=== PATIENT | female | born 2005 | race Caucasian/White ===

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

== ENCOUNTER 2025-01-07 13:54 | Outpatient (AMB) | payer OTHER, SELFPAY ==
--- NOTE | 2025-01-07 13:58 | A.OFFVIS_ITS ---
Vital Signs 3 01/07/25 14:05 Height 5 ft 3 in Weight 308 lb BMI 54.6 BP 144/81 H Blood Pressure Location Lt brachial Position Sitting Pulse 89 Intake Visit Reasons: cyst on scalp Intake Note: Patient is seen in office for evaluation of a cyst on the scalp. 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 This has been present for several years and have gradually increased in size. She denies any pain, redness or discharge. She denies a previous history of other lesions in the scalp. Her family history is negative for Pilar cysts. She would like to have the cyst checked to see if they are okay. [facility] Medical History GERD (gastroesophageal reflux disease) Insomnia Migraines Morbid obesity Mild intermittent asthma, uncomplicated Obesity Arthralgia Acanthosis nigricans Allergic rhinitis Surgical History History of pyloromyotomy H/O pyloric stenosis History of surgery on lower extremity Family History Father No problems noted. Mother Hypothyroidism Brother ADHD Social History Household Members: Family Housing: House Alcohol intake: current Alcohol intake frequency: holidays/special occasions only Patient Tobacco Use Status: Never used Tobacco e-Cigarette/Vaping Use: Never Used Second Hand Smoke Exposure: No Substance Use Type: Marijuana Cognitive needs: No Hearing needs: No Vision needs: Yes Female Reproductive History Menstrual Age of Menarche: 10 Review of Systems Const All systems reviewed & are unremarkable except as noted in HPI and below Physical Exam Const General: cooperative and no acute distress Nutritional Appearance: well nourished Orientation/consciousness: patient oriented x3 Limitations: no limitations HEENT Head: Yes normocephalic and Yes atraumatic Head images: 2 1. 0.75 cm posterior scalp Pilar cyst 2. 0.25 cm posterior scalp Pilar cyst Ears: hearing grossly normal bilaterally Resp Effort & Inspection: normal respiratory effort, no audible wheezes, no cough and no respiratory distress Cardio Jugular venous distension: no JVD GI Inspection: Yes normal to inspection Skin Other: Warm, dry, no rash Neuro General: patient oriented x3 Extrem General: Yes no clubbing, cyanosis or edema Assessment & Plan Assessment & Plan (1) Pilar cyst of scalp: Code(s): L72.11 - Pilar cyst Category: Medical Plan 19-year-old female patient presenting with 2 Pilar cysts of the scalp which are small and asymptomatic. Patient was reassured that these are benign. We discussed options including excision versus continued observation. After discussion of the procedure, she wishes to avoid surgery at this time. She should call should she develop symptoms from the cyst. Coding Level of Care Code New Pt Level 4 (97425) Diagnoses Pilar cyst of scalp L72.11
[2025-01-07 14:05] VITALS: BP 144/81; PULSE 89; BMI 54.6
--- OUTSIDE RECORDS SUMMARY | 2025-01-07 16:17 | XMS_ITS | Clinical Summary ---
Author Organization [facility] Address [address] [place] [id number] Phone Care Team Providers Care Fire Captain Marine Name Role Phone Sharon Diaz MD Primary Care Provider [phone] Allergies No known active allergies Medications naproxen (NAPROSYN) 500 MG tablet Take 500 mg by mouth 2 (two) times a day with meals. Active loratadine (CLARITIN REDITABS) 10 mg dissolvable tablet Take 10 mg by mouth daily. Active albuterol 90 mcg/actuation inhaler Inhale 2 puffs into the lungs every 6 (six) hours as needed for wheezing. Active melatonin 1 mg Tab Take by mouth nightly at bedtime. Active montelukast (SINGULAIR) 10 mg tablet Take 10 mg by mouth nightly at bedtime. Active Social History Tobacco Use Types Packs/Day Years Used Date Smoking Tobacco: Never Assessed Education Answer Date Recorded Are you interested in more education? Not on debby e 08/27/2022 Are you concerned about learning? Not on file 08/27/2022 No 08/27/2022 No 08/27/2022 Digital Access Answer Date Recorded No 09/25/2022 No 09/25/2022 No 09/25/2022 Reliable internet access at home? Not on file 09/25/2022 Device with a working camera? Not on file Comments Unknown Sex and Gender Information Value Date Recorded Sex Assigned at Not on file Legal Sex Female 3:08 PM EST Gender Identity Not on file Sexual Orientation Not on file Last Filed Vital Signs Vital Sign Reading Time Taken Comments Blood Pressure - - Pulse - - Temperature 37 C (98.6 F) 09/19/2019 9:03 AM EDT Respiratory Rate - - Oxygen Saturation - - Inhaled Oxygen Concentration - - Weight - - Height - - Body Mass Index - - Plan of Treatment Health Maintenance Due Date Last Done Comments MMR VACCINES (1 of 1 - Standard series) 2006 BMI ASSESSMENT 2008 DEVELOPMENTAL/BEHAVIORAL SCREENING (PHQ, PSC, or SWYC) 2008 COMBINED DTaP,Tdap,Td (2 - Td or Tdap) 03/02/2017 02/02/2017 DEPRESSION SCREENING 2017 SMOKING Hx and SMOKELESS TOBACCO SCREENING 2018 VARICELLA VACCINES (1 of 2 - 13+ 2-dose series) 2018 CHLAMYDIA SCREENING 2021 MENINGOCOCCAL VACCINES (B) (1 of 2 - Standard) 2021 ADOLESCENT UNIVERSAL LIPID SCREENING 2022 HEPATITIS C SCREENING 08/20/2023 HIV ONE-TIME SCREENING (18-65 YEARS) 08/20/2023 HEPATITIS B VACCINES (1 of 3 - 19+ 3-dose series) 2024 INFLUENZA VACCINE (#1) 2024 , 03/06/2019, 02/23/2018, Additional history exists COVID-19 VACCINE (2024- season) 2024 10/21/2020, 09/30/2020 MENINGOCOCCAL VACCINES (ACWY) Aged Out 02/02/2017 No longer eligible based on patient's age to complete this topic HPV VACCINES Completed 08/03/2017, 02/02/2017 HEPATITIS A VACCINES Aged Out No long er eligible based on patient's age to complete this topic HIB VACCINES Aged Out No longer eligi ble based on patient's age to complete this topic PNEUMOCOCCAL VACCINES (0-49 years) Aged Out No longer eligible based on patient's age to complete this topic Medical Devices Not on file Insurance [place] [place] [address] [place] [address] [place] [address] [place] [address] [place] [address] [place] [address] [place] [address] [place] [address] [place] [address] [place] [place] [address] [facility] ACO Care Teams Fire Captain Marine Relationship Specialty Start Date End Date Sharon Diaz MD [address] [place] [address] [place] [address] PCP - General Pediatrics 09/13/19 Additional Source Comments The information contained in this document represents components of the legal health record. It is not the complete legal health record.[facility]
--- OUTSIDE RECORDS SUMMARY | 2025-01-07 16:17 | XMS_ITS | Encounter Summary ---
Author Organization [facility] Address [address] [place] [address] Phone Care Team Providers Care Fire Prevention Specialist Name Role Phone Juju Espinosa DO Primary Care Provider Unavaila ble Encounter Details Date Type Department Care Team (Late st Contact Info) Description 03/29/2012 Conversion Encounter [place] [facility] [facility] [place] [address] Social History Tobacco Use Types Packs/Day Years [...] on filedocumented in this encounter Care Teams Fire Prevention Specialist Relationship Specialty Start Date End Date Juju Espinosa DO PCP - General 09/07/17 documented as of this encounter
--- OUTSIDE RECORDS SUMMARY | 2025-01-07 16:17 | XMS_ITS | Clinical Summary ---
Author Organization [facility] Address [address] [place] [address] Phone Care Team Providers Care Radiology Specialist Name Role Phone Juju Espinosa DO [...] DTaP,Tdap,and Td Vaccines (1 - Tdap) 08/20/2023 Hepatitis B Vaccines (1 of 3 - 19+ 3-dose series) 2024 Influenza Vaccines (#1) 2024 COVID-19 Vaccine (1 - 2023-2 5 season) [...] age to complete this topic Care Teams Radiology Specialist Relationship Specialty Start Date End Date Juju Espinosa DO PCP - General 09/07/17
== END 2025-01-07 14:13 | disposition home or self-care (01) ==
LOC: HO.HGS 13:55
PROVIDERS: PCP Physician Assistant; Visit Provider Surgery
DX: L72.11 Pilar cyst (principal)
CPT/HCPCS: 99204

== ENCOUNTER → 2025-01-07 13:54 | Outpatient (BNVA) | payer OTHER, SELFPAY | PROVIDERS: PCP Physician Assistant; Visit Provider Surgery | DX: L72.11 Pilar cyst (principal) | CPT/HCPCS: 99202 ==

== ENCOUNTER 2025-02-24 01:08 | Emergency (ER) | payer OTHER, SELFPAY ==
[2025-02-24 01:12] VITALS: BP 142/68; PULSE 100; RESP 16; TEMP 36.6; O2SAT 98; BMI 56.7
--- NOTE | 2025-02-24 01:41 | ED_ITS ---
HPI - Back Pain/Injury General Chief Complaint: Back Pain/Injury Stated Complaint: spondylosis Time Seen by Provider: 02/24/25 01:21 Source: patient Mode of arrival: ambulatory Limitations: no limitations History of Present Illness ED Provider: Dr. Chaya Chaney HPI Narrative: Patient comes to the emergency room complaining of acute on chronic mid lower back pain. Patient states that about a year ago she started having pain, patient states that she has been seen by her primary care physician and sports and chronic specialist. Patient states that she was diagnosed with spondylosis. Patient has tried physical therapy and now is on gabapentin. Patient states that today at work she lifted a heavy box of laminate and believes she pulled a muscle in her back. Patient denies radiation to the lower extremities, denies urinary/fecal incontinence/retention. Patient has normal steady gait. Normal strength in lower extremities. Related Data Home Medications ?Medication ?Instructions ?Recorded ?Confirmed pregabalin 75 mg capsule 75 mg PO BID 01/07/25 Previous Rx's ?Medication ?Instructions ?Recorded loratadine 10 mg tablet (Claritin) 10 mg PO DAILY #30 tabs 01/07/23 montelukast 10 mg tablet 10 mg PO DAILY #30 tabs 12/22 inhalational spacing device #1 ea 01/25/23 (Aerochamber MV spacer) budesonide-formoterol HFA 80 1 inh inhalation BID #10. 2 grams 02/06/24 mcg-4.5 mcg/actuation aerosol inhaler (Symbicort) melatonin 1 mg/mL oral liquid 3 mg (3 mL) PO BEDTIME # 59 mL 05/10/24 phentermine 37.5 mg capsule 37.5 mg PO DAILY #14 caps 06/10/24 acetaminophen 500 mg tablet 500 mg PO Q6H PRN fever or pain 09/12/24 (Tylenol Extra Strength) #14 tabs lidocaine 5 % topical patch 1 patch topical DAILY PRN pain #30 09/12/24 (Lidoderm) ea naproxen 500 mg tablet 500 mg PO BID PRN pain 10 da ys #20 09/12/24 tabs thiamine HCl (vitamin B1) 100 mg 100 mg PO DAILY #90 t abs 10/05/24 tablet sertraline 25 mg tablet 25 mg PO Q24H #30 tabs 11/19 bupropion HCl 75 mg tablet 75 mg PO DAILY #30 tabs 06/26 cholecalciferol (vitamin D3) 125 125 mcg PO DAILY #90 caps 01/01/25 mcg (5,000 unit) capsule cyclobenzaprine 5 mg tablet 5 mg PO Q8H PRN pain (scal e score 01/24/25 7-10) 5 days #14 tabs sertraline 100 mg tablet 100 mg PO DAILY 30 days #30 tabs 01/24/25 cyclobenzaprine 10 mg tablet 10 mg PO TID PRN muscle s pasm #10 02/24/25 tabs ketorolac 10 mg tablet 10 mg PO Q8H PRN pain #12 ta bs 02/24/25 Allergies Allergy/AdvReac Type Severity Reaction Status Date / Time Seasonal Allergies Allergy Mild Sneezing Verified 02/24/25 01:16 Review of Systems Review of Systems: Constitutional : No Weight loss, No Fever, No Chills, No Night Sweats, No Fatigue, No Malaise ENT/Mouth : No Hearing loss, No Ear Pain, No Nasal Congestion, No Sinus Pain, No Hoarseness, No sore throat, No Rhinorrhea, No Swallowing Difficulty Eyes: No Eye Pain, No Swelling, No Redness, No Foreign Body, No Discharge, No Vision Changes Cardiovascular : No Chest Pain, No SOB, No Dyspnea on Exertion, No Orthopnea, No Edema, No Palpitations Respiratory : No Cough, No Sputum, No Wheezing, No Smoke Exposure, No Dyspnea Gastrointestinal : No Nausea, No Vomiting, No Diarrhea, No Constipation, No abdominal Pain, No Hematochezia, No Melena Genitourinary : no irregular bleeding, No Dysuria, No Urinary Frequency, No Hematuria, No Urinary Incontinence, No Urgency, No Flank Pain, No Urinary Flow Changes, No Hesitancy Musculoskeletal : Complaining of a pulled back muscle after carrying a heavy rom x. No joint pain, No Myalgias, No Joint Swelling Skin : No Skin Lesions, No rash Neuro : No Weakness, No Numbness, No Paresthesias, No Loss of Consciousness, No Dizziness, No Headache Psych : No Anxiety/Panic, No Depression, No SI/HI/AH/VH, No Social Issues, Heme/Lymph: No Bruising, No Bleeding,No Lymphadenopathy Endocrine : No Polyuria, No Polydipsia, No Temperature Intolerance [facility] Past Medical History Medical History GERD (gastroesophageal reflux disease) Insomnia Migraines Morbid obesity Mild intermittent asthma, uncomplicated Obesity Arthralgia Acanthosis nigricans Allergic rhinitis Surgical History History of pyloromyotomy H/O pyloric stenosis History of surgery on lower extremity Family History Family History Father No problems noted. Mother Hypothyroidism Brother ADHD Social History Social History Household Members: Family Housing: House Alcohol intake: current Alcohol intake frequency: holidays/special occasions only Patient Tobacco Use Status: Never used Tobacco e-Cigarette/Vaping Use: Never Used Second Hand Smoke Exposure: No Substance Use Type: Marijuana Advance Directives: No Advance Directives Information Provided: Yes Do you have a plan to hurt others: No Plan Cognitive needs: No Hearing needs: No Vision needs: Yes Physical Exam Exam: Exam: Appearance: Alert. Oriented X3. No acute distress. Eyes: Pupils equal, round and reactive to light. ENT: Pharynx normal. Neck: Normal inspection. Neck supple. No lymph nodes noted. No crepitus CVS: Normal heart rate and rhythm. Pulses normal. Normal S1 and S2 Respiratory: No respiratory distress. Breath sounds normal. No Wheezing. No rales Abdomen: Soft and nontender. No rigidity. No distention. Back: Pain to palpation over the paraspinal muscles bilaterally. Skin: Skin warm and dry. Normal skin color. Normal skin turgor. Extremities: No lower extremity edema. No Lacerations. No Rash Neuro: Oriented X 3. No motor deficit. No sensory deficit. Moving all extremities. No slurred speech. CN 2 through 12 grossly intact Psych: calm, cooperative, normal affect Vital Signs: Vital Signs: Last Vital Signs Temp 98 F 02/24/25 01:12 Pulse 100 02/24/25 01:12 Resp 16 02/24/25 01:12 BP 142/68 H 02/24/25 01:12 Pulse Ox 98 02/24/25 01:12 O2 Del Method Room Air 02/24/25 01:12 BMI result Body Mass Index 56.7 Medical Decision Making Medical Decision Making MDM Narrative: Patient has palpable muscle spasms in bilateral paraspinal muscles. No thoracic or lumbar spine tenderness. Patient has normal strength in lower extremities, patient is ambulatory with normal steady gait. Patient was given a dose of IM Toradol and Decadron Patient's test negative, urinalysis has leukocyte esterase. No UTI symptoms. No antibiotics indicated. Patient instructed to follow-up with the primary care physician. Cauda equina is not suspected. Patient has no lower extremity weakness, normal gait, no urinary incontinence/retention Differential Diagnosis Differential Diagnoses: The differential diagnosis associated with the presentation includes (Musculoskeletal strain, sciatica) Lab Data [facility] Lab Attestation statement: I reviewed the patient's lab results. Labs: Lab Results 02/24/25 Range/Units 02:01 Urine Color Yellow Urine Appearance Clear Urine pH 5.5 (5.0-9.0) Ur Specific [place] 1.025 (1.005-1.025) Urine Protein Negative (Neg-Trace) mg/dL Urine Glucose (UA) Negative (Negative) mg/dL Urine Ketones Negative (Negative) mg/dL Urine Blood Negative (Negative) Urine Nitrite Negative (Negative) Ur Leukocyte Esterase Trace H (Negative) Urine RBC 0-2 (0-2) /HPF Urine WBC 6-10 H (0-5) /HPF Ur Squamous Epith Cells 3-5 (0-2) /HPF Urine Bacteria 1+ (None Seen) Hyaline Casts 0-2 (0-2) /LPF Urine Test NEGATIVE (NEGATIVE) Discharge Plan Discharge Clinical Impression: Musculoskeletal back pain Patient Disposition: Home, Self-Care Instructions: Back Pain (ED) Additional Instructions: Please follow-up with your primary care physician tomorrow. If you have any worsening or new symptoms, please return to the emergency room or call 911 Prescriptions: New ketorolac 10 mg tablet 10 mg PO Q8H PRN (Reason: pain) Qty: 12 0RF Rx Instructions: maximum total duration of 5 days from all oral, intranasal, or parenteral formulations cyclobenzaprine 10 mg tablet 10 mg PO TID PRN (Reason: muscle spasm) Qty: 10 0RF No Action loratadine [Claritin] 10 mg tablet 10 mg PO DAILY Qty: 30 5RF montelukast 10 mg tablet 10 mg PO DAILY Qty: 30 11RF budesonide-formoterol [Symbicort] 80-4.5 mcg/actuation HFA aerosol inhaler 1 inh inhalation BID Qty: 10.2 2RF Rx Instructions: To be used both as a maintenance medication daily and for rescue symptoms, no more than 12 puffs daily. melatonin 1 mg/mL liquid 3 mg PO BEDTIME Qty: 59 0RF thiamine HCl (vitamin B1) 100 mg tablet 100 mg PO DAILY Qty: 90 0RF sertraline 25 mg tablet 25 mg PO Q24H Qty: 30 1RF cholecalciferol (vitamin D3) 125 mcg (5,000 unit) capsule 125 mcg PO DAILY Qty: 90 0RF bupropion HCl 75 mg tablet 75 mg PO DAILY Qty: 30 0RF cyclobenzaprine 5 mg tablet 5 mg PO Q8H PRN (Reason: pain (scale score 7-10)) 5 Days Qty: 14 0RF sertraline 100 mg tablet 100 mg PO DAILY 30 Days Qty: 30 1RF acetaminophen [Tylenol Extra Strength] 500 mg tablet 500 mg PO Q6H PRN (Reason: fever or pain) Qty: 14 0RF lidocaine [Lidoderm] 5 % adhesive patch,medicated 1 patch topical DAILY MDD remove after 12 hours PRN (Reason: pain) Qty: 30 0RF Rx Instructions: leave on most painful area for up to 12 hrs naproxen 500 mg tablet 500 mg PO BID PRN (Reason: pain) 10 Days Qty: 20 0RF (DME) Aerochamber MV Spacer See Rx Instructions .ROUTE .MEDSUPPLY Qty: 1 0RF Rx Instructions: As directed phentermine 37.5 mg capsule 37.5 mg PO DAILY Qty: 14 0RF Rx Instructions: must administer 30 minutes before or 1-2 hours after breakfast pregabalin 75 mg capsule 75 mg PO BID Print Language: Malay
--- OUTSIDE RECORDS SUMMARY | 2025-02-24 01:42 | XMS_ITS | Encounter Summary ---
Author Organization [facility] Address [address] [place] [address] Phone Care Team Providers Care Security Services Manager Name Role Phone Juju Espinosa DO Primary Care Provider Unavaila ble Encounter Details Date Type Department Care Team (Late st Contact Info) Description 03/29/2012 Conversion Encounter [facility] [place] [address] Social History Tobacco Use Types Packs/Day Years [...] on filedocumented in this encounter Care Teams Security Services Manager Relationship Specialty Start Date End Date Juju Espinosa DO PCP - General 09/07/17 documented as of this encounter
--- OUTSIDE RECORDS SUMMARY | 2025-02-24 01:42 | XMS_ITS | Clinical Summary ---
Author Organization [facility] Address [address] [place] [address] Phone Care Team Providers Care Administrative Resident Name Role Phone Juju Espinosa DO Primary [...] Vaccines (#1) 2024 COVID-19 Vaccine (1 - 2024-2 6 season) 2024 HIB Vaccines Aged Out No [...] age to complete this topic Care Teams Administrative Resident Relationship Specialty Start Date End Date Juju Espinosa DO PCP - General 09/07/17
--- OUTSIDE RECORDS SUMMARY | 2025-02-24 01:42 | XMS_ITS | Clinical Summary ---
Author Organization [facility] Address [address] [place] [id number] Phone Care Team Providers Care Hearing Therapist Name Role Phone Sharon Diaz MD Primary Care Provider [phone] Allergies No known active allergies Medications naproxen [...] Medical Devices Not on file Insurance [place] [address] [place] [address] [place] [address] [place] [address] [place] [address] [place] [address] [place] [address] [place] [address] [place] [place] [address] [place] [address] [place] [address] [facility] ACO Care Teams Hearing Therapist Relationship Specialty Start Date End Date Sharon Diaz MD [address] [place] [address] [place] [address] PCP - General Pediatrics 09/13/19 Additional Source Comments The information contained in this document represents components of the legal health record. It is not the complete legal health record.[facility]
[2025-02-24 02:08] LABS: Appearance Urine Clear; Glucose Urine UA Negative (Negative); PH 5.5 (5.0-9.0); Specific Gravity - Urine 1.025 (1.005-1.025); UMIC TRIGGER UACC YES
[2025-02-24 02:09] LABS: UPreg QC Valid YES
[2025-02-24 02:13] LABS: UACC Culture Trigger YES
[2025-02-24 02:45] VITALS: BP 142/68; PULSE 100; RESP 16; TEMP 36.6; O2SAT 98
[2025-02-24 03:36] VITALS: BP 138/72; PULSE 89; RESP 16; TEMP 36.8; O2SAT 98
== END 2025-02-24 03:39 | disposition home or self-care (01) ==
PROVIDERS: Emergency Provider Emergency Medicine; PCP Pediatrics
DX: M62.830 Muscle spasm of back (principal); M54.9 Dorsalgia, unspecified; E66.01 Morbid (severe) obesity due to excess calories; M47.9 Spondylosis, unspecified; Z79.899 Other long term (current) drug therapy
CPT/HCPCS: 81001; 81025; 87086; 87147; 96372; 99284; J1100; J1885